=== PATIENT | female | born 1965 | race Caucasian/White ===

== ENCOUNTER 2017-01-13 17:30 | Emergency (ER) | payer OTHER | END 2017-01-13 20:35 | disposition home or self-care (01) | LOC: ER 17:30 | DX: R60.0 Localized edema (principal); I10 Essential (primary) hypertension; R06.02 Shortness of breath; F17.210 Nicotine dependence, cigarettes, uncomplicated; Z79.899 Other long term (current) drug therapy | CPT/HCPCS: 36415; 96374; J1940 ==